=== PATIENT | male | born 1970 | race Caucasian/White ===

== ENCOUNTER 2018-09-09 23:32 | Inpatient (IN) | payer OTHER ==
[2018-09-10 00:30] LABS: ADD MAN DIFF? NO
[2018-09-10 00:32] LABS: BASOPHILS % 0.5 % (0.0-2.0); EOSINOPHILS # 0.1 10^3/ul (0.0-0.5); EOSINOPHILS % 1.2 % (0.0-7.0); HEMATOCRIT 41.7 % (42.0-52.0); HEMOGLOBIN 13.4 g/dl (14.0-18.0); LYMPHOCYTES # 2.1 10^3/ul (0.8-2.9); LYMPHOCYTES % 24.7 % (15.0-51.0); MEAN CORPUSCULAR HEMOGLOBIN 27.3 pg (29.0-33.0); MEAN CORPUSCULAR HGB CONC 32.1 g/dl (32.0-37.0); MEAN CORPUSCULAR VOLUME 85.1 fl (82.0-101.0); MEAN PLATELET VOLUME 11.2 fl (7.4-10.4); MONOCYTE # 0.6 10^3/ul (0.3-0.9); MONOCYTES % 6.8 % (0.0-11.0); NEUTROPHIL # 5.6 10^3/ul (1.6-7.5); NEUTROPHILS % 66.4 % (39.0-77.0); PLATELET COUNT 207 10^3/UL (140-415); RED CELL DISTRIBUTION WIDTH 16.2 % (11.5-14.5)
[2018-09-10 00:32] LABS: WHITE BLOOD COUNT 8.5 10^3/ul (4.8-10.8)
[2018-09-10 00:54] LABS: ALANINE AMINOTRANSFERASE 47 IU/L (13-69); ALBUMIN 3.7 g/dl (3.3-4.9); ALBUMIN/GLOBULIN RATIO 1.37; ALKALINE PHOSPHATASE 164 IU/L (42-121); ANION GAP 13 (5-13); ASPARTATE AMINO TRANSFERASE 39 IU/L (15-46); BILIRUBIN,INDIRECT 1.1 mg/dl (0-1.1); BILIRUBIN,TOTAL 1.1 mg/dl (0.2-1.3); BLOOD UREA NITROGEN 31 mg/dl (7-20); CALCIUM 9.3 mg/dl (8.4-10.2); CARBON DIOXIDE 25 mmol/L (21-31); CHLORIDE 102 mmol/L (97-110); CREATININE 1.89 mg/dl (0.61-1.24); Estimated GFR 38 mL/min (>60); GLUCOSE 194 mg/dl (70-220); POTASSIUM 3.7 mmol/L (3.5-5.1); SODIUM 140 mmol/L (135-144); TOTAL PROTEIN 6.4 g/dl (6.1-8.1)
[2018-09-10 01:06] LABS: B-TYPE NATRIURETIC PEPTIDE 22000 PG/ML (0-125)
[2018-09-10 01:11] LABS: TROPONIN-I 0.149 ng/ml (0.000-0.120)
[2018-09-10] MEDS: FUROSEMIDE 40 MG INJ IV ×3 (01:35→17:36)
[2018-09-10] MEDS: ASPIRIN 81 MG TAB PO (01:35)
[2018-09-10] MEDS ORDERED: ONDANSETRON 4 MG INJ IV (03:30)
[2018-09-10] MEDS ORDERED: ACETAMINOPHEN 325 MG TAB PO (03:30)
[2018-09-10] MEDS: NITROGLYCERIN (SL) 0.4 MG TAB SL (03:43)
[2018-09-10] MEDS: LABETALOL HCL 20MG INJ IV (03:44)
[2018-09-10] MEDS ORDERED: FUROSEMIDE 40 MG INJ IV (09:00)
[2018-09-10 09:20] LABS: ADD MAN DIFF? NO
[2018-09-10 09:24] LABS: WHITE BLOOD COUNT 8.6 10^3/ul (4.8-10.8)
[2018-09-10 09:24] LABS: BASOPHIL # 0.1 10^3/ul (0.0-0.1); BASOPHILS % 0.7 % (0.0-2.0); EOSINOPHILS # 0.2 10^3/ul (0.0-0.5); EOSINOPHILS % 2.2 % (0.0-7.0); HEMATOCRIT 42.3 % (42.0-52.0); HEMOGLOBIN 13.3 g/dl (14.0-18.0); LYMPHOCYTES # 2.9 10^3/ul (0.8-2.9); LYMPHOCYTES % 34.1 % (15.0-51.0); MEAN CORPUSCULAR HEMOGLOBIN 27.1 pg (29.0-33.0); MEAN CORPUSCULAR HGB CONC 31.4 g/dl (32.0-37.0); MEAN CORPUSCULAR VOLUME 86.3 fl (82.0-101.0); MEAN PLATELET VOLUME 11.2 fl (7.4-10.4); MONOCYTE # 0.7 10^3/ul (0.3-0.9); MONOCYTES % 8.6 % (0.0-11.0); NEUTROPHIL # 4.6 10^3/ul (1.6-7.5); NEUTROPHILS % 53.9 % (39.0-77.0); PLATELET COUNT 197 10^3/UL (140-415); RED CELL DISTRIBUTION WIDTH 16.4 % (11.5-14.5)
[2018-09-10] MEDS: ALPRAZOLAM 0.25 MG TAB PO (09:29)
[2018-09-10 09:49] LABS: ANION GAP 12 (5-13); BLOOD UREA NITROGEN 30 mg/dl (7-20); CALCIUM 9.3 mg/dl (8.4-10.2); CARBON DIOXIDE 27 mmol/L (21-31); CHLORIDE 103 mmol/L (97-110); CREATININE 1.84 mg/dl (0.61-1.24); Estimated GFR 39 mL/min (>60); GLUCOSE 98 mg/dl (70-220); POTASSIUM 3.7 mmol/L (3.5-5.1); SODIUM 142 mmol/L (135-144)
[2018-09-10 10:00] LABS: TROPONIN-I 0.143 ng/ml (0.000-0.120)
[2018-09-10] MEDS: ALBUTEROL 0.083% (NEB) 2.5 MG/3 ML AMP HHN (11:46)
[2018-09-10] MEDS ORDERED: BUMETANIDE 1 MG INJ IV (12:00)
[2018-09-10] MEDS: DEXTROSE 5% IVPB (15:01)
[2018-09-10] MEDS: BUMETANIDE IVPB (15:01)
[2018-09-10] MEDS: NITROGLYCERIN 2% 1 GM OINT PKT TD ×2 (15:06→21:15)
[2018-09-10] MEDS: ATORVASTATIN 20 MG TAB PO (21:15)
[2018-09-11] MEDS: BUMETANIDE 6 MG in DEXTROSE 5% 36 ML IV ×2 (00:13→11:39)
[2018-09-11] MEDS: NITROGLYCERIN 2% 1 GM OINT PKT TD (06:27)
[2018-09-11] MEDS: HYDROCODONE/APAP (5/325) TAB PO ×2 (06:27→18:08)
[2018-09-11 06:30] LABS: ADD MAN DIFF? NO
[2018-09-11 06:33] LABS: BASOPHIL # 0.1 10^3/ul (0.0-0.1); BASOPHILS % 0.8 % (0.0-2.0); EOSINOPHILS # 0.3 10^3/ul (0.0-0.5); EOSINOPHILS % 2.9 % (0.0-7.0); HEMATOCRIT 46.3 % (42.0-52.0); HEMOGLOBIN 14.7 g/dl (14.0-18.0); LYMPHOCYTES # 3.1 10^3/ul (0.8-2.9); MEAN CORPUSCULAR HEMOGLOBIN 26.7 pg (29.0-33.0); MEAN CORPUSCULAR HGB CONC 31.7 g/dl (32.0-37.0); MEAN PLATELET VOLUME 11.4 fl (7.4-10.4); MONOCYTE # 0.9 10^3/ul (0.3-0.9); MONOCYTES % 9.9 % (0.0-11.0); NEUTROPHIL # 4.7 10^3/ul (1.6-7.5); NEUTROPHILS % 52.1 % (39.0-77.0); PLATELET COUNT 223 10^3/UL (140-415); RED BLOOD COUNT 5.51 10^6/ul (4.70-6.10); RED CELL DISTRIBUTION WIDTH 16.1 % (11.5-14.5)
[2018-09-11 06:57] LABS: HDL CHOLESTEROL 59 mg/dl (28-71); LDL CHOLESTEROL,CALCULATED 44 mg/dl; TRIGLYCERIDES 82 mg/dl (0-149)
[2018-09-11 06:57] LABS: CHOLESTEROL 119 mg/dl (100-200)
[2018-09-11 06:59] LABS: ANION GAP 10 (5-13); BLOOD UREA NITROGEN 38 mg/dl (7-20); CALCIUM 9.7 mg/dl (8.4-10.2); CARBON DIOXIDE 35 mmol/L (21-31); CHLORIDE 97 mmol/L (97-110); CREATININE 1.82 mg/dl (0.61-1.24); Estimated GFR 40 mL/min (>60); GLUCOSE 94 mg/dl (70-220); POTASSIUM 3.5 mmol/L (3.5-5.1); SODIUM 142 mmol/L (135-144)
[2018-09-11] MEDS: FUROSEMIDE 40 MG INJ IV (07:24)
[2018-09-11 07:27] LABS: MAGNESIUM 1.8 mg/dl (1.7-2.5)
[2018-09-11] MEDS: ASPIRIN 81 MG TAB PO (08:18)
[2018-09-11 10:54] LABS: BARBITURATES Negative (NEGATIVE); BENZODIAZEPINES Negative (NEGATIVE); CANNABINOIDS Negative (NEGATIVE); COCAINE Negative (NEGATIVE); OPIATES Negative (NEGATIVE)
[2018-09-11 11:01] LABS: AMPHETAMINE/METHAMPHETAMINE Positive (NEGATIVE)
[2018-09-11] MEDS: ATORVASTATIN 20 MG TAB PO (20:45)
[2018-09-12] MEDS: ASPIRIN 81 MG TAB PO (08:06)
[2018-09-12 09:07] LABS: ANION GAP 12 (5-13); BLOOD UREA NITROGEN 37 mg/dl (7-20); CALCIUM 9.2 mg/dl (8.4-10.2); CARBON DIOXIDE 32 mmol/L (21-31); CHLORIDE 96 mmol/L (97-110); CREATININE 1.53 mg/dl (0.61-1.24); Estimated GFR 49 mL/min (>60); GLUCOSE 92 mg/dl (70-220); SODIUM 140 mmol/L (135-144)
[2018-09-12] MEDS: POTASSIUM CHLORIDE (SR) 20 MEQ TAB PO (10:13)
[2018-09-12] MEDS: LISINOPRIL 10 MG TAB PO (11:19)
[2018-09-12] MEDS: METOPROLOL (XL) 25 MG TAB PO (11:19)
[2018-09-12] MEDS: BUMETANIDE 12 MG in DEXTROSE 5% 72 ML IV (13:16)
== END 2018-09-12 18:51 | disposition home or self-care (01) | DRG 293 ==
LOC: E/R 23:32 → TEL 09-10 03:13
PROVIDERS: Internal Medicine
DX: I11.0 Hypertensive heart disease with heart failure (principal); I42.9 Cardiomyopathy, unspecified; I13.0 Hypertensive heart and chronic kidney disease with heart failure and stage 1 through stage 4 chronic kidney disease, or unspecified chronic kidney disease; N18.3 Chronic kidney disease, stage 3 (moderate); F15.90 Other stimulant use, unspecified, uncomplicated; F14.90 Cocaine use, unspecified, uncomplicated
CPT/HCPCS: 36415; 71045; 80048; 80053; 80061; 80307; 83735; 83880; 84484; 85025; 93005; 93306; 94660; 94664; 96374; 99285-25

== ENCOUNTER 2018-10-10 23:47 | Inpatient (IN) | payer OTHER ==
[2018-10-11 01:55] LABS: ADD MAN DIFF? NO
[2018-10-11 01:56] LABS: BASOPHILS % 0.5 % (0.0-2.0); EOSINOPHILS # 0.3 10^3/ul (0.0-0.5); EOSINOPHILS % 3.1 % (0.0-7.0); HEMATOCRIT 41.9 % (42.0-52.0); HEMOGLOBIN 13.4 g/dl (14.0-18.0); LYMPHOCYTES # 2.7 10^3/ul (0.8-2.9); LYMPHOCYTES % 31.5 % (15.0-51.0); MEAN CORPUSCULAR HEMOGLOBIN 27.1 pg (29.0-33.0); MEAN CORPUSCULAR VOLUME 84.8 fl (82.0-101.0); MEAN PLATELET VOLUME 10.8 fl (7.4-10.4); MONOCYTE # 0.8 10^3/ul (0.3-0.9); MONOCYTES % 9.6 % (0.0-11.0); NEUTROPHIL # 4.6 10^3/ul (1.6-7.5); NEUTROPHILS % 55.2 % (39.0-77.0); PLATELET COUNT 196 10^3/UL (140-415); RED BLOOD COUNT 4.94 10^6/ul (4.70-6.10); RED CELL DISTRIBUTION WIDTH 16.3 % (11.5-14.5)
[2018-10-11 01:56] LABS: WHITE BLOOD COUNT 8.4 10^3/ul (4.8-10.8)
[2018-10-11 02:15] LABS: ALANINE AMINOTRANSFERASE 43 IU/L (13-69); ALBUMIN 3.6 g/dl (3.3-4.9); ALBUMIN/GLOBULIN RATIO 1.24; ALKALINE PHOSPHATASE 154 IU/L (42-121); ANION GAP 8 (5-13); ASPARTATE AMINO TRANSFERASE 35 IU/L (15-46); BILIRUBIN,INDIRECT 0.7 mg/dl (0-1.1); BILIRUBIN,TOTAL 0.7 mg/dl (0.2-1.3); BLOOD UREA NITROGEN 32 mg/dl (7-20); CALCIUM 9.2 mg/dl (8.4-10.2); CARBON DIOXIDE 30 mmol/L (21-31); CHLORIDE 102 mmol/L (97-110); CREATININE 1.72 mg/dl (0.61-1.24); Estimated GFR 42 mL/min (>60); GLUCOSE 101 mg/dl (70-220); POTASSIUM 4.4 mmol/L (3.5-5.1); SODIUM 140 mmol/L (135-144); TOTAL PROTEIN 6.5 g/dl (6.1-8.1)
[2018-10-11 02:16] LABS: INR 1.21; PARTIAL THROMBOPLASTIN TIME 26.1 Sec (23.0-35.0); PROTIME 15.4 Sec (11.9-14.9); PT RATIO 1.2
[2018-10-11 02:27] LABS: B-TYPE NATRIURETIC PEPTIDE 13200 PG/ML (0-125)
[2018-10-11 02:34] LABS: TROPONIN-I 0.127 ng/ml (0.000-0.120)
[2018-10-11] MEDS: ASPIRIN 325 MG TAB PO (03:44)
[2018-10-11] MEDS: BUMETANIDE 1 MG INJ IV (03:44)
[2018-10-11] MEDS ORDERED: morphine 2 MG INJ IV (04:30)
[2018-10-11] MEDS ORDERED: BUMETANIDE 1 MG INJ IV (04:30)
[2018-10-11] MEDS ORDERED: ONDANSETRON 4 MG INJ IV (04:30)
[2018-10-11] MEDS: LOSARTAN 50 MG TAB PO (06:44)
[2018-10-11 09:25] LABS: TROPONIN-I 0.113 ng/ml (0.000-0.120)
[2018-10-11] MEDS: BUMETANIDE 2 MG in DEXTROSE 5% 17 ML IV (09:49)
[2018-10-11] MEDS: METOPROLOL (XL) 50 MG TAB PO (09:49)
[2018-10-11] MEDS: ASPIRIN (EC) 81 MG TAB PO (09:49)
[2018-10-11] MEDS: ATORVASTATIN 20 MG TAB PO (09:49)
[2018-10-11] MEDS: ACETAMINOPHEN 325 MG TAB PO (10:09)
[2018-10-11] MEDS: POTASSIUM CHLORIDE (SR) 20 MEQ TAB PO ×2 (12:50→20:40)
[2018-10-11] MEDS: BUMETANIDE 25 MG in DEXTROSE 5% 150 ML IV (12:50)
[2018-10-11 20:20] LABS: ANION GAP 9 (5-13); BLOOD UREA NITROGEN 38 mg/dl (7-20); CALCIUM 9.5 mg/dl (8.4-10.2); CARBON DIOXIDE 33 mmol/L (21-31); CHLORIDE 98 mmol/L (97-110); CREATININE 1.92 mg/dl (0.61-1.24); Estimated GFR 37 mL/min (>60); GLUCOSE 153 mg/dl (70-220); MAGNESIUM 1.8 mg/dl (1.7-2.5); POTASSIUM 3.7 mmol/L (3.5-5.1); SODIUM 140 mmol/L (135-144)
[2018-10-11] MEDS: MAGNESIUM SULFATE 2 GM/50 ML 50 ML IVPB (20:33)
[2018-10-12 04:40] LABS: BARBITURATES Negative (NEGATIVE); BENZODIAZEPINES Negative (NEGATIVE); CANNABINOIDS Negative (NEGATIVE); COCAINE Negative (NEGATIVE); OPIATES Negative (NEGATIVE)
[2018-10-12 04:43] LABS: AMPHETAMINE/METHAMPHETAMINE Positive (NEGATIVE)
[2018-10-12] MEDS: LOSARTAN 50 MG TAB PO (05:28)
[2018-10-12 06:01] LABS: ADD MAN DIFF? NO
[2018-10-12 06:12] LABS: BASOPHIL # 0.1 10^3/ul (0.0-0.1); BASOPHILS % 0.6 % (0.0-2.0); EOSINOPHILS # 0.3 10^3/ul (0.0-0.5); EOSINOPHILS % 3.2 % (0.0-7.0); HEMATOCRIT 43.5 % (42.0-52.0); HEMOGLOBIN 13.9 g/dl (14.0-18.0); LYMPHOCYTES # 3.3 10^3/ul (0.8-2.9); LYMPHOCYTES % 33.6 % (15.0-51.0); MEAN CORPUSCULAR HEMOGLOBIN 27.4 pg (29.0-33.0); MEAN CORPUSCULAR VOLUME 85.6 fl (82.0-101.0); MEAN PLATELET VOLUME 11.3 fl (7.4-10.4); MONOCYTE # 0.8 10^3/ul (0.3-0.9); MONOCYTES % 8.6 % (0.0-11.0); NEUTROPHIL # 5.3 10^3/ul (1.6-7.5); NEUTROPHILS % 53.7 % (39.0-77.0); PLATELET COUNT 205 10^3/UL (140-415); RED BLOOD COUNT 5.08 10^6/ul (4.70-6.10); RED CELL DISTRIBUTION WIDTH 16.5 % (11.5-14.5)
[2018-10-12 06:12] LABS: WHITE BLOOD COUNT 9.8 10^3/ul (4.8-10.8)
[2018-10-12 06:33] LABS: ANION GAP 10 (5-13); BLOOD UREA NITROGEN 41 mg/dl (7-20); CALCIUM 9.4 mg/dl (8.4-10.2); CARBON DIOXIDE 33 mmol/L (21-31); CHLORIDE 100 mmol/L (97-110); CREATININE 1.86 mg/dl (0.61-1.24); Estimated GFR 39 mL/min (>60); GLUCOSE 83 mg/dl (70-220); POTASSIUM 3.6 mmol/L (3.5-5.1); SODIUM 143 mmol/L (135-144)
[2018-10-12] MEDS: METOPROLOL (XL) 50 MG TAB PO (09:00)
[2018-10-12] MEDS: POTASSIUM CHLORIDE (SR) 20 MEQ TAB PO (09:23)
[2018-10-12] MEDS: ASPIRIN (EC) 81 MG TAB PO (09:23)
[2018-10-12] MEDS: ATORVASTATIN 20 MG TAB PO (09:23)
[2018-10-12] MEDS: BUMETANIDE 25 MG in DEXTROSE 5% 150 ML IV (12:25)
[2018-10-12] MEDS ORDERED: MAGNESIUM SULFATE 3 GM in DEXTROSE 5% 100 ML IVPB (19:30)
== END 2018-10-12 19:50 | disposition left against medical advice (07) | DRG 291 ==
LOC: E/R 23:47 → 6WM 10-11 04:25
DX: I13.0 Hypertensive heart and chronic kidney disease with heart failure and stage 1 through stage 4 chronic kidney disease, or unspecified chronic kidney disease (principal); I50.23 Acute on chronic systolic (congestive) heart failure; N17.9 Acute kidney failure, unspecified; I47.1 Supraventricular tachycardia; I42.9 Cardiomyopathy, unspecified; Z86.73 Personal history of transient ischemic attack (TIA), and cerebral infarction without residual deficits; Z87.891 Personal history of nicotine dependence; I08.1 Rheumatic disorders of both mitral and tricuspid valves; N18.3 Chronic kidney disease, stage 3 (moderate); F15.90 Other stimulant use, unspecified, uncomplicated
CPT/HCPCS: 36415; 71045; 80048; 80053; 80307; 83735; 83880; 84484; 85025; 85610; 85730; 93005; 96374; 99285-25